=== PATIENT | male | born 1980 | race African-American/Black ===

== ENCOUNTER 2016-12-16 16:01 | Emergency (ER) | payer OTHER ==
[~2016-12-16] VITALS: Ht 167.6 cm; Wt 81.7 kg
[2016-12-16 16:12] VITALS: BP 161/96
[2016-12-16] MEDS ORDERED: ADVIL MIGRAINE200 M1 PO (16:14)
[2016-12-16] MEDS ORDERED: PENICILLIN V P500 MG PO (16:43)
[2016-12-16] MEDS ORDERED: NORCO 5-325 TA1 EACH PO (16:47)
== END 2016-12-16 16:44 | disposition home or self-care (01) ==
LOC: ER 16:01
DX: K05.219 Aggressive periodontitis, localized, unspecified severity (principal); K02.9 Dental caries, unspecified

== ENCOUNTER 2018-09-14 10:21 | Emergency (ER) | payer OTHER ==
[~2018-09-14] VITALS: Ht 172.7 cm; Wt 90.7 kg
[~2018-09-14 10:21] MED LIST: ADVIL MIGRAINE200 M1 PO; NORCO 5-325 TA1 EACH PO; PENICILLIN V P500 MG PO
[2018-09-14 10:33] VITALS: BP 144/94
[2018-09-14] MEDS ORDERED: PENICILLIN V P500 MG PO (11:22)
[2018-09-14] MEDS ORDERED: NAPROSYN500 MG PO (11:22)
== END 2018-09-14 11:34 | disposition home or self-care (01) ==
LOC: ER 10:21
DX: K05.10 Chronic gingivitis, plaque induced (principal)

== ENCOUNTER 2018-11-10 09:44 | Emergency (ER) | payer OTHER ==
[~2018-11-10] VITALS: Ht 170.2 cm; Wt 88.5 kg
[~2018-11-10 09:44] MED LIST changes: +NAPROSYN500 MG PO
[2018-11-10] MEDS ORDERED: MOBIC7.5 MG PO (09:50)
[2018-11-10] MEDS ORDERED: PENICILLIN V P500 MG PO (09:50)
[2018-11-10] MEDS ORDERED: HYDROCODONE-AP1 EAC6 PO (10:58)
[2018-11-10 11:24] VITALS: BP 159/91
== END 2018-11-10 11:24 | disposition home or self-care (01) ==
LOC: ER 09:44
DX: K04.7 Periapical abscess without sinus (principal)

== ENCOUNTER 2020-03-12 05:26 | Emergency (ER) | payer OTHER ==
[~2020-03-12] VITALS: Ht 172.7 cm; Wt 90.7 kg
[~2020-03-12 05:26] MED LIST changes: +HYDROCODONE-AP1 EAC6 PO; +MOBIC7.5 MG PO
[2020-03-12] MEDS ORDERED: TYLENOL325 M1 PO (05:37)
[2020-03-12] MEDS ORDERED: APAP W/CODEINE1 TA2 PO (05:51)
[2020-03-12] MEDS ORDERED: PENICILLIN VK500 M1 PO (05:51)
[2020-03-12 06:05] VITALS: BP 153/110
== END 2020-03-12 06:07 | disposition home or self-care (01) ==
LOC: ER 05:26
DX: K04.7 Periapical abscess without sinus (principal); Z79.899 Other long term (current) drug therapy